=== PATIENT | female | born 2000 | race Two or more races ===

== ENCOUNTER 2020-07-02 05:42 | Emergency (ER) | payer MEDICAID ==
[~2020-07-02] VITALS: Ht 152.4 cm; Wt 73.9 kg
[2020-07-02 07:09] LABS: Urine Bacteria NONE SEEN /hpf (None Seen); Urine Blood TRACE /uL (Negative); Urine Mucus FEW (None Seen); Urine Specific Gravity 1.035 (1.001-1.035); Urine WBC 6 /hpf (0 - 5)
[2020-07-02 07:18] VITALS: BP 112/60
[2020-07-02] MEDS ORDERED: AZITHROMYCIN 250 MG TAB PO ONE ×2 (07:44→07:45)
[2020-07-02] MEDS ORDERED: cefTRIAXone SODIUM 250 MG VL IM ONE (07:45)
== END 2020-07-02 08:08 | disposition home or self-care (01) ==
LOC: ER 05:42
DX: N39.0 Urinary tract infection, site not specified (principal); N76.0 Acute vaginitis; Z20.2 Contact with and (suspected) exposure to infections with a predominantly sexual mode of transmission; Z88.1 Allergy status to other antibiotic agents
CPT/HCPCS: 81001; 81025; 96372; 99283; J0696